=== PATIENT | female | born 1970 | race Caucasian/White ===

== ENCOUNTER 2017-07-06 20:12 | Emergency (ER) | payer SELFPAY ==
[2017-07-06 21:03] VITALS: BP 132/80
[2017-07-06] MEDS ORDERED: Diphtheria,Pertussis(Acell),Tetanus Vaccine 0.5 ML SDV IM ONE (21:13)
[2017-07-06] MEDS ORDERED: Acetaminophen/oxyCODONE 325-5 MG Tab PO ONE (21:13)
[2017-07-06] MEDS ORDERED: Amoxicillin/Clavulanate K 875-125 MG Tab PO ONE ×2 (21:13→23:34)
--- NOTE | 2017-07-06 21:20 | EDM.PDOC ---
ED HPI GENERAL MEDICAL PROBLEM - General Chief Complaint: Upper Extremity Injury/Pain Stated Complaint: DOG BITE Time Seen by Provider: 07/06/17 21:10 Source of Information: Reports: Patient History Limitations: Reports: No Limitations - History of Present Illness INITIAL COMMENTS - FREE TEXT/NARRATIVE: 46 yo female was bitten and shook by a large dog prior to arrival. Tetanus is not UTD. Dog's rabies vaccine status is known and UTD. Injury to the distal L forearm. Onset: Today Onset Date: 07/06/17 Onset Time: 19:45 Duration: Minutes: Location: Reports: Upper Extremity, Left Quality: Reports: Ache, Burning Severity: Moderate Improves with: Reports: Rest Worsens with: Reports: Movement Context: Reports: Other (Dog bite) Associated Symptoms: Reports: No Other Symptoms Treatments [employer]: Reports: Other (see below) (none) left arm Pain Score (Numeric/FACES): 7 - Related Data Allergies Allergy/AdvReac Type Severity Reaction Status Date / Time No Known Allergies Allergy Verified 07/06/17 20:51 Home Meds: Home Meds Amoxicillin/Potassium Clav [Augmentin 875-125 Tablet] 1 each PO Q12H #13 tablet 07/06/17 [Rx] Past Medical History HEENT History: Reports: None Cardiovascular History: Reports: None Respiratory History: Reports: None Gastrointestinal History: Reports: None Genitourinary History: Reports: None ICER AIR CONDITIONING History: Reports: None Musculoskeletal History: Reports: None Neurological History: Reports: None Psychiatric History: Reports: Anxiety Endocrine/Metabolic History: Reports: None Hematologic History: Reports: None Immunologic History: Reports: None Oncologic (Cancer) History: Reports: None Dermatologic History: Reports: None - Infectious Disease History Infectious Disease History: Reports: None - Past Surgical History Head Surgeries/Procedures: Reports: None HEENT Surgical History: Reports: LASIK Cardiovascular Surgical History: Reports: None Respiratory Surgical History: Reports: None GI Surgical History: Reports: None Female Surgical History: Reports: None Endocrine Surgical History: Reports: None Neurological Surgical History: Reports: None Musculoskeletal Surgical History: Reports: None Oncologic Surgical History: Reports: None Dermatological Surgical History: Reports: None Social & Family History - Tobacco Use Smoking Status *Q: Never Smoker - Caffeine Use Caffeine Use: Reports: Coffee - Recreational Drug Use Recreational Drug Use: No Review of Systems - Review of Systems Review Of Systems: See Below Constitutional: Reports: No Symptoms Musculoskeletal: Reports: Arm Pain (L distal forearm) Skin: Reports: Wound (bite wounds L distal forearm) Neurological: Reports: No Symptoms ED EXAM, GENERAL - Physical Exam Exam: See Below Exam Limited By: No Limitations General Appearance: Alert, WD/WN, No Apparent Distress Extremities: Arm Pain (L distal forearm with local swelling. ), Other (CMS intact distal to the wounds. ) Neurological: Alert, Oriented, CN II-XII Intact, Normal Cognition, No Motor/ Sensory Deficits Psychiatric: Normal Affect, Normal Mood Skin Exam: Warm, Dry, Normal Color, No Rash, Wound/Incision (Several deep bite wounds to the L distal forearm. No active bleeding. ) Lymphatic: No Adenopathy Course - Vital Signs Last Recorded V/S: Last Vital Signs Temp 37.1 C 07/06/17 21:01 Pulse 94 07/06/17 21:01 Resp 18 07/06/17 21:01 BP 132/80 07/06/17 21:01 Pulse Ox 95 07/06/17 21:01 - Orders/Labs/Meds Orders: Active Orders 24 hr Category Date Time Status Vaccines to be Administered [RC] PER UNIT ROUTINE Care 07/06/17 21:13 Active Forearm 2V Lt [CR] Stat Exams 07/06/17 21:14 Taken Sodium Chloride 0.9% [Saline Flush] Med 07/06/17 21:35 Active 10 ml FLUSH ASDIRECTED PRN Saline Lock Insert [OM.PC] Routine Oth 07/06/17 21:35 Ordered Medication Orders Sodium Chloride (Saline Flush) 10 ml FLUSH ASDIRECTED PRN PRN Reason: Keep Vein Open Meds: Medications Generic Name Dose Route Start Last Admin Trade Name Freq PRN Reason Stop Dose Admin Sodium Chloride 10 ml 07/06/17 21:35 Saline Flush FLUSH ASDIRECTED PRN Keep Vein Open Discontinued Medications Generic Name Dose Route Start Last Admin Trade Name Freq PRN Reason Stop Dose Admin Amoxicillin/Clavulanate Potassium 1 tab 07/06/17 21:13 07/06/17 22:12 Augmentin 875 Mg/125 Mg PO 07/06/17 21:14 Not Given ONETIME ONE Diphtheria/Tetanus/Acell Pertussis 0.5 ml 07/06/17 21:13 07/06/17 22:10 Adacel IM 07/06/17 21:14 0.5 ml .ONCE ONE Administration Ampicillin Sodium/Sulbactam 50 mls @ 100 mls/hr 07/06/17 21:35 07/06/17 22:09 Sodium 1.5 gm/ Sodium Chloride IV 07/06/17 22:04 100 mls/hr ONETIME ONE Administration Oxycodone/Acetaminophen 1 tab 07/06/17 21:13 07/06/17 22:11 Percocet 325-5 Mg PO 07/06/17 21:14 1 tab ONETIME ONE Administration - Radiology Interpretation Free Text/Narrative:: L forearm X-ray-No fx seen. Wound cleaned. A Dressing was applied. A sling given. Departure - Departure Time of Disposition: 23:02 Disposition: Home, Self-Care 01 Condition: Fair Clinical Impression: Dog bite of forearm Qualifiers: Encounter type: initial encounter Laterality: left Qualified Code(s): S51.852A - Open bite of left forearm, initial encounter - Discharge Information Prescriptions: Amoxicillin/Potassium Clav [Augmentin 875-125 Tablet] 1 each PO Q12H #13 tablet Referrals: PCP,None [Primary Care Provider] - Forms: ED Department Discharge Additional Instructions: Wear sling for support. Keep elevated and clean. Take Augmentin every 12 hrs with food. Take Percocet 1 or 2 every 4-6 hrs as needed for pain relief. Use ibuprofen for added relief as needed. Clean wound twice daily with soap and water. Dry. Apply antibiotic ointment and a new dressing. Recheck wound on Monday where ever you are that day. - My Orders Last 24 Hours: My Active Orders 07/06/17 21:13 Vaccines to be Administered [RC] PER UNIT ROUTINE 07/06/17 21:14 Forearm 2V Lt [CR] Stat 07/06/17 21:35 Sodium Chloride 0.9% [Saline Flush] 10 ml FLUSH ASDIRECTED PRN Saline Lock Insert [OM.PC] Routine - Assessment/Plan Last 24 Hours: My Active Orders 07/06/17 21:13 Vaccines to be Administered [RC] PER UNIT ROUTINE 07/06/17 21:14 Forearm 2V Lt [CR] Stat 07/06/17 21:35 Sodium Chloride 0.9% [Saline Flush] 10 ml FLUSH ASDIRECTED PRN Saline Lock Insert [OM.PC] Routine
[2017-07-06] MEDS ORDERED: Ampicillin/Sulbactam Na 1.5 GM in Sodium Chloride 0.9% 50 ML IV ONE (21:35)
[2017-07-06] MEDS ORDERED: Sodium Chloride 0.9% 10 ML Syringe FLUSH PRN (21:35)
[2017-07-06] MEDS ORDERED: Bacitracin Oint 1 GM U/D Packet TOP ONE (23:09)
--- NOTE | 2017-07-07 09:06 | CR ---
Forearm 2V Lt HISTORY: dog bite with forearm deformity FINDINGS: No acute fracture or dislocation is identified. Bony architecture and joint spaces are preserved. A small amount of air can be seen in the subcutaneous tissues anteriorly. IMPRESSION: Mild subcutaneous emphysema. No fracture or foreign body. No other acute left forearm abnormality is identified.
== END 2017-07-06 23:55 | disposition home or self-care (01) ==
LOC: JP.ED 20:12
DX: S51.852A Open bite of left forearm, initial encounter (principal); Z23 Encounter for immunization; W54.0XXA Bitten by dog, initial encounter
CPT/HCPCS: 73090; 90471; 90715; 96365; 99284; A9270; J0287; J7050